=== PATIENT | male | born 1950 | race Caucasian/White ===

== ENCOUNTER 2018-01-22 09:25 | Observation (INO) | payer OTHER ==
[2018-01-22] VITALS (9 sets, daily range): BP systolic 125–180; BP diastolic 76–90; PULSE 63–95; RESP 15–22; TEMP 98.3–98.7; O2SAT 96–100
[~2018-01-22] VITALS: Ht 182.9 cm; Wt 92.0 kg
--- NOTE | 2018-01-22 09:51 | PD ---
HPI Chief Complaint: Chest Pain Time Seen by Provider: 09:36 Travel History International Travel<30 days: No Contact w/Intl Traveler<30days: No Traveled to known affect area: No History of Present Illness HPI The patient is a 67-year-old male who presents emergency department for chest pain. The patient states he developed chest pain the left aspect of the chest approximate 3 weeks ago. Initially the pain was sharp, lasting only seconds, however, he has had some constant pressure over the last 3 weeks. He denies any significant shortness of breath, nausea, or vomiting. He does note he is diaphoretic when working outside, he attributes the diaphoresis to the humidity. He denies any known history of hypertension, hyperlipidemia, diabetes , tobacco use, or significant family medical history. However, family member does state the patient's blood pressures been elevated her last several months. The patient does not routinely follow-up with a physician. He denies any significant exertional component to the chest pain, does state it is worse in the morning. The patient feels like there is a lump near the left nipple where the pain is located. PFSH Past Medical History Hiatal Hernia: Yes Hypertension: Yes Tetanus Vaccination: Unknown Influenza Vaccination: No Past Surgical History Abdominal Surgery: Yes (Hernia Surgery ) Social History Alcohol Use: Yes Tobacco Use: No Substance Use: No Allergies-Medications (Allergen,Severity, Reaction): Coded Allergies: No Known Allergies (Unverified , 01/22/18) Reported Meds & Prescriptions Reported Meds & Active Scripts Active No Active Prescriptions or Reported Medications Review of Systems Except as stated in HPI: all other systems reviewed are Neg General / Constitutional: No: Fever HENT: No: Lightheadedness Cardiovascular: Positive: Chest Pain or Discomfort, Diaphoresis, No: Dyspnea on exertion Respiratory: No: Cough, Shortness of Breath Gastrointestinal: No: Nausea, Vomiting, Abdominal Pain Musculoskeletal: No: Edema Neurologic: No: Dizziness Physical Exam Narrative GENERAL: Awake, alert, nontoxic-appearing 67-year-old male who appears his stated age and is in no acute respiratory distress. SKIN: Focused skin assessment warm/dry. HEAD: Atraumatic. Normocephalic. EYES: Pupils equal and round. No scleral icterus. No injection or drainage. ENT: No nasal bleeding or discharge. Mucous membranes pink and moist. NECK: Trachea midline. No JVD. CARDIOVASCULAR: Regular rate and rhythm. No murmur appreciated. Palpation the left chest wall does not reproduce pain. I am unable to feel a lump over the affected area. RESPIRATORY: No accessory muscle use. Clear to auscultation. Breath sounds equal bilaterally. GASTROINTESTINAL: Abdomen soft, non-tender, nondistended. MUSCULOSKELETAL: No obvious deformities. No clubbing. No cyanosis. No edema. NEUROLOGICAL: Awake and alert. No obvious cranial nerve deficits. Motor grossly within normal limits. Normal speech. PSYCHIATRIC: Appropriate mood and affect; insight and judgment normal. Data Data Last Documented VS Vital Signs Date Time Temp Pulse Resp B/P (MAP) Pulse Ox O2 Delivery O2 Flow Rate FiO2 01/22/18 10:03 98 2.00 01/22/18 09:57 81 177/86 (116) 01/22/18 09:57 18 Room Air 01/22/18 09:27 98.3 Orders Orders Electrocardiogram (01/22/18 09:46) Ckmb (Isoenzyme) Profile (01/22/18 09:46) Complete Blood Count With Diff (01/22/18 09:46) Comprehensive Metabolic Panel (01/22/18 09:46) Magnesium (Mg) (01/22/18 09:46) Prothrombin Time / Inr (Pt) (01/22/18 09:46) Act Partial Throm Time (Ptt) (01/22/18 09:46) Troponin I (01/22/18 09:46) Ecg Monitoring (01/22/18 09:46) Bilateral Bp Monitoring (01/22/18 09:46) Iv Access Insert/Monitor (01/22/18 09:46) Oximetry (01/22/18 09:46) Oxygen Administration (01/22/18 09:46) Aspirin Chew (Aspirin Chew) (01/22/18 10:00) Nitroglycerin 2% Oint (Nitroglycerin 2% (01/22/18 10:00) Sodium Chloride 0.9% Flush (Ns Flush) (01/22/18 10:00) Sodium Chlorid 0.9% 500 Ml Inj (Ns 500 M (01/22/18 10:00) Chest, Pa & Lat (01/22/18 09:46) CKMB (01/22/18 09:35) CKMB% (01/22/18 09:35) Admit Order (Ed Use Only) (01/22/18 11:57) Labs Laboratory Tests Test 01/22/18 09:35 White Blood Count 5.6 TH/MM3 Red Blood Count 4.56 MIL/MM3 Hemoglobin 14.6 GM/DL Hematocrit 42.6 % Mean Corpuscular Volume 93.4 FL Mean Corpuscular Hemoglobin 32.0 PG Mean Corpuscular Hemoglobin Concent 34.3 % Red Cell Distribution Width 13.3 % Platelet Count 210 TH/MM3 Mean Platelet Volume 8.1 FL Neutrophils (%) (Auto) 53.3 % Lymphocytes (%) (Auto) 32.2 % Monocytes (%) (Auto) 11.0 % Eosinophils (%) (Auto) 2.8 % Basophils (%) (Auto) 0.7 % Neutrophils # (Auto) 3.0 TH/MM3 Lymphocytes # (Auto) 1.8 TH/MM3 Monocytes # (Auto) 0.6 TH/MM3 Eosinophils # (Auto) 0.2 TH/MM3 Basophils # (Auto) 0.0 TH/MM3 CBC Comment DIFF FINAL Differential Comment Prothrombin Time 10.4 SEC Prothromb Time International Ratio 1.0 RATIO Activated Partial Thromboplast Time 25.0 SEC Blood Urea Nitrogen 19 MG/DL Creatinine 1.55 MG/DL Random Glucose 80 MG/DL Total Protein 7.8 GM/DL Albumin 3.6 GM/DL Calcium Level 9.0 MG/DL Magnesium Level 2.1 MG/DL Alkaline Phosphatase 59 U/L Aspartate Amino Transf (AST/SGOT) 31 U/L Alanine Aminotransferase (ALT/SGPT) 35 U/L Total Bilirubin 0.4 MG/DL Sodium Level 141 MEQ/L Potassium Level 3.8 MEQ/L Chloride Level 106 MEQ/L Carbon Dioxide Level 25.1 MEQ/L Anion Gap 10 MEQ/L Estimat Glomerular Filtration Rate 45 ML/MIN Total Creatine Kinase 148 U/L Creatine Kinase MB 1.0 NG/ML Troponin I LESS THAN 0.02 NG/ML MDM Medical Decision Making Medical Screen Exam Complete: Yes Emergency Medical Condition: Yes Medical Record Reviewed: Yes Interpretation(s) EKG reveals normal sinus rhythm with a rate 84. RSR prime in V1 consistent with incomplete right bundle branch block. Q-wave noted in lead III and aVF. Last Impressions Chest X-Ray 01/22/18 0908 Signed Impressions: CONCLUSION: Negative examination. Laboratory Tests Test 01/22/18 09:35 White Blood Count 5.6 TH/MM3 Red Blood Count 4.56 MIL/MM3 Hemoglobin 14.6 GM/DL Hematocrit 42.6 % Mean Corpuscular Volume 93.4 FL Mean Corpuscular Hemoglobin 32.0 PG Mean Corpuscular Hemoglobin Concent 34.3 % Red Cell Distribution Width 13.3 % Platelet Count 210 TH/MM3 Mean Platelet Volume 8.1 FL Neutrophils (%) (Auto) 53.3 % Lymphocytes (%) (Auto) 32.2 % Monocytes (%) (Auto) 11.0 % Eosinophils (%) (Auto) 2.8 % Basophils (%) (Auto) 0.7 % Neutrophils # (Auto) 3.0 TH/MM3 Lymphocytes # (Auto) 1.8 TH/MM3 Monocytes # (Auto) 0.6 TH/MM3 Eosinophils # (Auto) 0.2 TH/MM3 Basophils # (Auto) 0.0 TH/MM3 CBC Comment DIFF FINAL Differential Comment Prothrombin Time 10.4 SEC Prothromb Time International Ratio 1.0 RATIO Activated Partial Thromboplast Time 25.0 SEC Blood Urea Nitrogen 19 MG/DL Creatinine 1.55 MG/DL Random Glucose 80 MG/DL Total Protein 7.8 GM/DL Albumin 3.6 GM/DL Calcium Level 9.0 MG/DL Magnesium Level 2.1 MG/DL Alkaline Phosphatase 59 U/L Aspartate Amino Transf (AST/SGOT) 31 U/L Alanine Aminotransferase (ALT/SGPT) 35 U/L Total Bilirubin 0.4 MG/DL Sodium Level 141 MEQ/L Potassium Level 3.8 MEQ/L Chloride Level 106 MEQ/L Carbon Dioxide Level 25.1 MEQ/L Anion Gap 10 MEQ/L Estimat Glomerular Filtration Rate 45 ML/MIN Total Creatine Kinase 148 U/L Creatine Kinase MB 1.0 NG/ML Troponin I LESS THAN 0.02 NG/ML Differential Diagnosis Differential diagnosis includes acute coronary syndrome, STEMI, pleurisy, pleural effusion, lung carcinoma, pneumonia, costochondritis, breast cancer. Narrative Course IV was established, labs are drawn and sent, and the patient was placed on cardiac telemetry monitoring and continuous pulse oximetry monitoring. EKG was ordered and interpreted. The patient was administered aspirin and placed on Nitropaste with IV fluids. Chest x-ray was obtained. The patient's chest x- ray was unremarkable. Initial troponin is less than 0.02. The patient states his pressure pain did improve with nitro. The patient does have 2 risk factors , male over the age of 55 and hypertension. I did discussion with the patient regarding serial enzymes and discharge with outpatient stress test versus 23 hour observation to the chest pain center. After discussion the patient would prefer to stay in the hospital for possible stress test evaluation later today or more likely tomorrow morning. Therefore, the patient was a 23 hour observation to the chest pain center. Physician Communication Physician Communication The patient will be a 23 hour observation to the chest pain center for serial cardiac enzymes and further evaluation by cardiology. Diagnosis Primary Impression: Chest pain Qualified Codes: R07.9 - Chest pain, unspecified Admitting Information Admitting Physician Requests: Observation Scripts No Active Prescriptions or Reported Meds Condition: Stable Pacheco Montelongo MD Jan 22, 2018 09:51
[2018-01-22] MEDS ORDERED: SODIUM CHLORIDE 0.9% FLUSH 10 ML FLUSH IVF PRN (10:00)
[2018-01-22] MEDS ORDERED: NITROGLYCERIN 2% OINT 1 GM PACKET TOP ONE (10:00)
[2018-01-22] MEDS ORDERED: SODIUM CHLORID 0.9% 500 ML INJ 500 ML IV ONE (10:00)
[2018-01-22] MEDS ORDERED: ASPIRIN 81 MG CHEW TAB PO ONE (10:00)
--- NOTE | 2018-01-22 10:28 | RADRPT ---
EXAM DATE: 01/22/2018 10:14 AM EDT AGE/SEX: 67 years / Male INDICATIONS: Chest pain. CLINICAL DATA: This is the patient's initial encounter. Patient reports that signs and symptoms have been present for 3 weeks and indicates a pain score of 5/10. MEDICAL/SURGICAL HISTORY: None. None. COMPARISON: No prior exams available for comparison. FINDINGS: PA and lateral views of the chest demonstrate the lungs to be symmetrically aerated without evidence of mass, infiltrate or effusion. The cardiomediastinal contours are unremarkable. Osseous structures are intact. CONCLUSION: Negative examination. Electronically signed by: Franklin Schaefer MD 01/22/2018 10:27 AM EDT
[2018-01-22 10:37] LABS: BASOPHIL % 0.7 % (0.0-2.0); EOSINOPHIL # 0.2 TH/MM3 (0-0.4); EOSINOPHIL % 2.8 % (0.0-4.0); HEMATOCRIT 42.6 % (39.0-51.0); HEMOGLOBIN 14.6 GM/DL (13.0-17.0); LYMPH % 32.2 % (9.0-44.0); LYMPHOCYTE # 1.8 TH/MM3 (1.0-4.8); MEAN CELL VOLUME 93.4 FL (80.0-100.0); MEAN CORPUSCULAR HGB CONC 34.3 % (32.0-36.0); MEAN PLATELET VOLUME 8.1 FL (7.0-11.0); MONOCYTE # 0.6 TH/MM3 (0-0.9); NEUT % 53.3 % (16.0-70.0); PLATELET COUNT 210 TH/MM3 (150-450); RED BLOOD COUNT 4.56 MIL/MM3 (4.50-5.90); RED CELL DISTRIBUTION WIDTH 13.3 % (11.6-17.2); WHITE BLOOD COUNT 5.6 TH/MM3 (4.0-11.0)
[2018-01-22 10:45] LABS: PROTHROMBIN TIME - PATIENT 10.4 SEC (9.8-11.6)
[2018-01-22 10:55] LABS: ALT (GPT) 35 U/L (12-78)
[2018-01-22 10:59] LABS: ALBUMIN 3.6 GM/DL (3.4-5.0); ALKALINE PHOSPHATASE 59 U/L (45-117); AST (GOT) 31 U/L (15-37); BICARBONATE 25.1 MEQ/L (21.0-32.0); BLOOD UREA NITROGEN 19 MG/DL (7-18); CHLORIDE 106 MEQ/L (98-107); CREATININE 1.55 MG/DL (0.60-1.30); GLOMERULAR FILTRATION RATE 45 ML/MIN (>89); GLUCOSE,RANDOM 80 MG/DL (74-106); MAGNESIUM 2.1 MG/DL (1.5-2.5); SODIUM (NA) 141 MEQ/L (136-145); TOTAL BILIRUBIN ADULT 0.4 MG/DL (0.2-1.0); TOTAL PROTEIN 7.8 GM/DL (6.4-8.2); TROPONIN I LESS THAN 0.02 NG/ML (0.02-0.05)
[2018-01-22] MEDS ORDERED: amLODIPine BESYLATE 5 MG TAB PO ONE (12:45)
[2018-01-22] MEDS ORDERED: ACETAMINOPHEN/HYDROcodone 325 MG/7.5 MG TAB PO PRN (13:00)
[2018-01-22] MEDS ORDERED: ACETAMINOPHEN 500 MG CPLT PO PRN (13:00)
--- NOTE | 2018-01-22 13:08 | HHI.HP ---
[facility] Primary Care Physician Chanda Thurston MD Chief Complaint Chest pain History of Present Illness This is a 67-year-old male that presents to ED via private vehicle with his daughter with a complaint of chest discomfort. Symptoms began 3 weeks ago. States he was inside when it began. It was a left-sided sharp chest discomfort that lasted 3 or 4 seconds however when that resolved a pressure than followed and has been constant ever since. Symptoms are not worsened by activity. States that he has tried Zantac a couple times which did help a little bit but again did not resolve the symptoms. He believes there is a tender spot on the left chest wall that is causing the discomfort. Denies prior cardiac workup. Denies history of hypertension but his daughter states that recently he was told his blood pressure is higher but has not followed with primary to placed on medication. Review of Systems General: Patient denies fevers, chills, and recent travel. HEENT: Patient denies headache, sore throat, difficulty swallowing. Cardiovascular: Has the chest discomfort as mentioned above. Denies sensation of heart beating rapidly or irregularly. No syncope. Denies diaphoresis. Respiratory: Denies shortness of breath or inspirational chest discomfort. Denies coughing wheezing or hemoptysis. GI: Patient denies nausea, vomiting, diarrhea, abdominal pain, bloody stools. Musculoskeletal: Patient denies joint pain or edema. Denies calf pain or edema. Neurovascular: Patient denies numbness, tingling, weakness in extremities. Denies headache. Endocrine: Denies polyuria and polydipsia. Hematologic: Denies easy bruising. Skin: Denies rash or itching. Past Family Social History Allergies: Coded Allergies: No Known Allergies (Unverified , 01/22/18) Past Medical History Denies history of hypertension but was found to have elevated blood pressures recently but again not diagnosed as prescribed. Denies hyperlipidemia, diabetes , known CAD. Non-smoker. Past Surgical History Inguinal hernia repair and umbilical hernia repair. Reported Medications Reported Meds & Active Scripts Active No Active Prescriptions or Reported Medications Active Ordered Medications Current Medications Medications (Trade) Dose Ordered Sig/Minesh Route Start Time Stop Time Status Last Admin (NS Flush) 2 ml UNSCH PRN IVF 01/22/18 10:00 01/22/18 09:54 Family History Late onset coronary disease in his family. States that his mother had a stent at age 93. Social History Lifetime non-smoker. Denies illicit drug use. He has an average a 6 pack of beer per day and may also have a mixed beverages well. Physical Exam Vital Signs Vital Signs Date Time Temp Pulse Resp B/P (MAP) Pulse Ox O2 Delivery O2 Flow Rate FiO2 01/22/18 12:55 73 18 138/76 (96) 97 Room Air 01/22/18 10:03 98 2.00 01/22/18 09:57 81 177/86 (116) 01/22/18 09:57 81 18 177/86 (116) 100 Room Air 01/22/18 09:39 18 100 Room Air 01/22/18 09:33 86 18 180/86 (117) 99 Room Air 01/22/18 09:33 81 180/86 (117) 01/22/18 09:27 98.3 95 20 167/88 (114) 98 Physical Exam GENERAL: This is a well-nourished, well-developed patient, in no apparent distress. Patient speaks in clear complete sentences. Patient is pleasant. HEENT: Head is atraumatic and normocephalic. Neck is supple without lymphadenopathy and trachea is midline. No JVD or carotid bruits. CARDIOVASCULAR: Regular rate and rhythm without murmurs, gallops, or rubs. RESPIRATORY: Clear to auscultation. Breath sounds equal bilaterally. No wheezes , rales, or rhonchi. Chest wall is tender worsening the discomfort that he has had for 3 weeks. No use of accessory muscles. GASTROINTESTINAL: Abdomen is nontender, nondistended. Abdomen soft. No obvious pulsatile mass or bruit. No CVA tenderness. Strong femoral pulses bilaterally. Normal bowel sounds in all quadrants. MUSCULOSKELETAL: Patient is moving upper and lower extremities freely. No calf tenderness or edema, no Homans sign. Strong pulses in upper and lower extremities. NEUROLOGICAL: Patient is alert and oriented. Cranial nerves 2-12 are grossly intact. No focal deficits and speech is clear. SKIN: No rash and turgor is normal. Laboratory Laboratory Tests Test 01/22/18 09:35 White Blood Count 5.6 Red Blood Count 4.56 Hemoglobin 14.6 Hematocrit 42.6 Mean Corpuscular Volume 93.4 Mean Corpuscular Hemoglobin 32.0 Mean Corpuscular Hemoglobin Concent 34.3 Red Cell Distribution Width 13.3 Platelet Count 210 Mean Platelet Volume 8.1 Neutrophils (%) (Auto) 53.3 Lymphocytes (%) (Auto) 32.2 Monocytes (%) (Auto) 11.0 Eosinophils (%) (Auto) 2.8 Basophils (%) (Auto) 0.7 Neutrophils # (Auto) 3.0 Lymphocytes # (Auto) 1.8 Monocytes # (Auto) 0.6 Eosinophils # (Auto) 0.2 Basophils # (Auto) 0.0 CBC Comment DIFF FINAL Differential Comment Prothrombin Time 10.4 Prothromb Time International Ratio 1.0 Activated Partial Thromboplast Time 25.0 Blood Urea Nitrogen 19 Creatinine 1.55 Random Glucose 80 Total Protein 7.8 Albumin 3.6 Calcium Level 9.0 Magnesium Level 2.1 Alkaline Phosphatase 59 Aspartate Amino Transf (AST/SGOT) 31 Alanine Aminotransferase (ALT/SGPT) 35 Total Bilirubin 0.4 Sodium Level 141 Potassium Level 3.8 Chloride Level 106 Carbon Dioxide Level 25.1 Anion Gap 10 Estimat Glomerular Filtration Rate 45 Total Creatine Kinase 148 Creatine Kinase MB 1.0 Troponin I LESS THAN 0.02 Result Diagram: 01/22/1835 01/22/18934 Imaging Last 48 hours Impressions Chest X-Ray 01/22/18 09 Signed Impressions: CONCLUSION: Negative examination. Course EKGs are sinus rhythm without significant ST segment depressions or elevations. Caprini VTE Risk Assessment Caprini VTE Risk Assessment: Mod/High Risk (score >= 2) Caprini Risk Assessment Model Point Value = 1 Point Value = 2 Point Value = 3 Point Value = 5 Age 41-60 Minor surgery BMI > 25 kg/m2 Swollen legs Varicose veins or History of unexplained or recurrent spontaneous Oral contraceptives or hormone replacement Sepsis (< 1 month) Serious lung disease, including pneumonia (< 1 month) Abnormal pulmonary function Acute myocardial infarction Congestive heart failure (< 1 month) History of inflammatory bowel disease Medical patient at bed rest Age 61-74 Arthroscopic surgery Major open surgery (> 45 min) Laparoscopic surgery (> 45 min) Malignancy Confined to bed (> 72 hours) Immobilizing plaster cast Central venous access Age >= 75 History of VTE Family history of VTE Factor V Leiden Prothrombin [id number] Lupus anticoagulant Anticardiolipin antibodies Elevated serum homocysteine Heparin-induced thrombocytopenia Other congenital or acquired thrombophilia Stroke (< 1 month) Elective arthroplasty Hip, pelvis, or leg fracture Acute spinal cord injury (< 1 month) Prophylaxis Regimen Total Risk Factor Score Risk Level Prophylaxis Regimen 0-1 Low Early ambulation 2 Moderate Order ONE of the following: *Sequential Compression Device (SCD) *Heparin 5000 units SQ BID 3-4 Higher Order ONE of the following medications: *Heparin 5000 units SQ TID *Enoxaparin/Lovenox 40 mg SQ daily (WT < 150 kg, CrCl > 30 mL/min) *Enoxaparin/Lovenox 30 mg SQ daily (WT < 150 kg, CrCl > 10-29 mL/min) *Enoxaparin/Lovenox 30 mg SQ BID (WT < 150 kg, CrCl > 30 mL/min) AND/OR *Sequential Compression Device (SCD) 5 or more Highest Order ONE of the following medications: *Heparin 5000 units SQ TID (Preferred with Epidurals) *Enoxaparin/Lovenox 40 mg SQ daily (WT < 150 kg, CrCl > 30 mL/min) *Enoxaparin/Lovenox 30 mg SQ daily (WT < 150 kg, CrCl > 10-29 mL/min) *Enoxaparin/Lovenox 30 mg SQ BID (WT < 150 kg, CrCl > 30 mL/min) AND *Sequential Compression Device (SCD) Assessment and Plan Assessment and Plan * Chest pain: Patient has had constant chest discomfort for 3 weeks. He will be seen by Dr. Spencer of cardiology in the chest pain center. Patient's first troponin is normal. Patient will have a Chi protocol ETT and will likely be discharged home if stress test is nonischemic with instructions to follow-up with PCP. His blood pressure was elevated in the ED. He will be given medication at this time. Patient is stable at this time. He is agreeable to this plan. Chente Ro Jan 22, 2018 13:08
--- NOTE | 2018-01-22 14:45 | TR ---
Date Performed: 01/22/2018 Time Performed: 13:06:55 DOCTOR: Alfonso Spencer DRUG LIST: CLINICAL HISTORY: REASON FOR TEST: Chest pain REASON FOR ENDING: OBSERVATION: CONCLUSION: AARON PROTOCOL. THE PATIENT'S CONSTANT CHEST DISCOMFORT RESOLVED DURING THE STRESS T EST.Maximum LV=784 % Max HR Achieved=92.0% Maximum BS=950/84 Total Exercise Time=4:00 COMMENTS: Negative stress test with a low probablility of isgnificant ischemic heart disease.
[2018-01-22] MEDS ORDERED: LISI10TA3 PO (14:47)
--- NOTE | 2018-01-22 14:48 | HHI.DCPOC ---
Discharge Care Plan Diagnosis: (1) Chest pain (2) Hypertension (3) Renal insufficiency Goals to Promote Your Health * To prevent worsening of your condition and complications * To maintain your health at the optimal level Directions to Meet Your Goals Take your medications as prescribed Follow your dietary instruction Follow activity as directed Keep your appointments as scheduled Take your immunizations and boosters as scheduled If your symptoms worsen call your PCP, if no PCP go to Urgent Care Center or Emergency Room Smoking is Dangerous to Your Health. Avoid second hand smoke Call the 24-hour hour crisis hotline for domestic abuse at Chente Ro Jan 22, 2018 14:48
[2018-01-23] MEDS ORDERED: ASPIRIN 325 MG TAB PO SCH (09:00)
--- NOTE | 2018-01-23 13:12 | EKG ---
Date Performed: 01/22/2018 Time Performed: 08:35:57 PTAGE: 67 years EKG: Sinus rhythm INCOMPLETE RIGHT BUNDLE BRANCH BLOCK Possible old INFERIOR MYOCARDIAL INFARCTION ABNORMAL ECG No jaylin or for comparison clinical correlation recommended NO PREVIOUS TRACING DOCTOR: Alfonso Spencer Interpretating Date/Time 01/23/2018 13:10:37
== END 2018-01-22 15:21 | disposition home or self-care (01) ==
LOC: NEPE 09:25 → NEDA 12:06 → NEPGCP 14:24
PROVIDERS: ADMIT Internal Medicine Interventional Cardiology; ATTEND Internal Medicine Interventional Cardiology
DX: R07.89 Other chest pain (principal); I45.10 Unspecified right bundle-branch block; R94.31 Abnormal electrocardiogram [ECG] [EKG]; R61 Generalized hyperhidrosis; I10 Essential (primary) hypertension; N28.9 Disorder of kidney and ureter, unspecified
CPT/HCPCS: 71046; 80053; 82550; 82552; 83735; 84484; 85025; 85610; 85730; 93005; 93017; 96360; 99285; G0378; J7040